=== PATIENT | male | born 1995 | race Caucasian/White ===

== ENCOUNTER 2018-05-07 15:46 | Emergency (ER) | payer OTHER ==
[2018-05-07] MEDS ORDERED: Ondansetron ODT 8 MG TAB ONE (16:38)
--- NOTE | 2018-05-07 17:09 | RAD ---
RIGHT ANKLE THREE VIEWS: 05/07/18 HISTORY: Injury, right ankle pain. FINDINGS/IMPRESSION: There is a bimalleolar fracture with lateral displacement of the medial malleolar fracture fragment. No dislocation is seen. Soft tissue swelling is present. POS: FREDDIE
== END 2018-05-07 18:34 | disposition home or self-care (01) ==
LOC: ERS 15:46
DX: S82.841A Displaced bimalleolar fracture of right lower leg, initial encounter for closed fracture (principal); F17.210 Nicotine dependence, cigarettes, uncomplicated; X50.1XXA Overexertion from prolonged static or awkward postures, initial encounter
CPT/HCPCS: 96374; 96376; J2270

== ENCOUNTER 2018-05-10 17:26 | Outpatient (CLI) | payer OTHER | END 2018-05-10 17:27 | disposition home or self-care (01) | LOC: LABBT 17:26 | PROVIDERS: ATTEND Orthopaedic Surgery | DX: Z01.818 Encounter for other preprocedural examination (principal); S82.841A Displaced bimalleolar fracture of right lower leg, initial encounter for closed fracture; S93.431A Sprain of tibiofibular ligament of right ankle, initial encounter ==

== ENCOUNTER 2018-05-14 08:11 | Day surgery (SDC) | payer OTHER ==
[2018-05-10 17:53] VITALS: BMI 27.3
[2018-05-14] MEDS ORDERED: CEFAZOLIN/Water 2 GM/20 ML SYRINGE ONE (08:40)
[2018-05-14] MEDS ORDERED: Midazolam HCl 2 mg/2 ml Vial ONE (08:50)
[2018-05-14] MEDS ORDERED: Fentanyl 100 MCG/2 ML VIAL ONE ×3 (08:50→12:07)
[2018-05-14] MEDS ORDERED: Zolpidem Tartrate 5 MG TAB PO PRN (09:10)
[2018-05-14] MEDS ORDERED: Fentanyl 100 MCG/2 ML VIAL IV PRN (09:10)
[2018-05-14] MEDS ORDERED: HYDROcodone/Acetaminophen 10/325 mg Tablet PO PRN ×2 (09:10)
[2018-05-14] MEDS ORDERED: traMADol HCl 50 MG TAB PO PRN ×2 (09:10)
[2018-05-14] MEDS ORDERED: Promethazine HCl 25 MG/ML VIAL IM PRN (09:10)
[2018-05-14] MEDS ORDERED: Ketorolac Tromethamine 30 MG/ML VIAL IVP PRN (09:10)
[2018-05-14] MEDS ORDERED: Ondansetron HCl/PF 4 MG/2 ML Vial IVP PRN (09:10)
[2018-05-14] MEDS ORDERED: Ropivacaine HCl/PF 750 ML in Premix Bag 1 BAG NERVE BLCK SCH (09:15)
[2018-05-14] MEDS ORDERED: Meperidine HCl/PF 25 MG/ML VIAL ONE (11:35)
--- NOTE | 2018-05-14 12:04 | RAD ---
RIGHT ANKLE 3 VIEWS: Date: 05/14/18 HISTORY: Right ankle fracture. FINDINGS/IMPRESSION: Three spot fluoroscopic intraoperative images of the right ankle demonstrate interval reduction and i nternal fixation of the fractures of the medial and lateral malleoli since exam of 05/07/18. POS: FREDDIE
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
== END 2018-05-14 13:52 | disposition home or self-care (01) ==
LOC: SDC 08:11
PROVIDERS: ATTEND Orthopaedic Surgery
PROC: 0QSG04Z Reposition Right Tibia with Internal Fixation Device, Open Approach (ICD-10-PCS; principal; 2018-05-14)
PROC: 0QSJ04Z Reposition Right Fibula with Internal Fixation Device, Open Approach (ICD-10-PCS; principal; 2018-05-14)
DX: S82.841A Displaced bimalleolar fracture of right lower leg, initial encounter for closed fracture (principal); S93.431A Sprain of tibiofibular ligament of right ankle, initial encounter
CPT/HCPCS: 76001; 96374; C1713; C1769; J2175; J2250; J2795; J3010